=== PATIENT | male | born 1980 | race Caucasian/White ===

== ENCOUNTER → 2018-08-15 | Outpatient (CLI) | payer OTHER ==
[~2018-08-15] MED LIST: IOPAMIDOL 370 MG/ML 200 ML INFUS..BTL INJ ONE; SODIUM CHLORIDE 0.9% 50ML 50 ML ONE
--- NOTE | 2018-08-15 09:46 | Diagnostic Imaging Report ---
EXAMINATION: CT of the abdomen and pelvis with contrast. TECHNIQUE: Spiral CT images of the abdomen and pelvis were performed from the lung bases to the lesser trochanters after the intravenous administration of 100 cc of Isovue-370 and the oral administration of water. Coronal and sagittal reformatted images were obtained. COMPARISON: None. CLINICAL HISTORY:Melena, abdominal pain, patient reports history of cholecystectomy DISCUSSION: ABDOMEN/PELVIS: LOWER THORAX:Trace subsegmental atelectasis in the dependent lower lobes. HEPATOBILIARY: No focal hepatic lesions. No intra-or extrahepatic biliary ductal dilation. The gallbladder has been removed with multiple metallic clips in the hepatic hilum. SPLEEN: No splenomegaly. Small splenule in the hilum. PANCREAS: No focal masses or ductal dilatation. ADRENALS: No adrenal nodules. KIDNEYS/URETERS: No hydronephrosis, stones, or solid mass lesions. PELVIC ORGANS/BLADDER: Urinary bladder, prostate, and seminal vesicles are unremarkable. PERITONEUM/RETROPERITONEUM: No free air or fluid. LYMPH NODES: No pelvic sidewall, retroperitoneal, or mesenteric lymphadenopathy. VESSELS: Abdominal aorta, major branch vessels, and iliac arterial systems are well-visualized and patent, without aneurysmal dilatation. The portal vein, splenic vein, and central superior mesenteric vein are patent. GI TRACT: The large bowel shows no evidence of distention or wall thickening. The appendix is normal. Mild prominence of the gastric rugal folds is likely attributable to underdistention. No small bowel dilatation to suggest obstruction. BONES AND SOFT TISSUE: No bony destructive lesions. No soft tissue abnormalities. IMPRESSION: No acute intra-abdominal or pelvic CT abnormality. No CT findings to explain the patient's reported history of melena or abdominal pain. Signed by: Dr. Ike Schwartz M.D. on 08/15/2018 9:42 AM
== END ==
LOC: CT 08:12
PROVIDERS: ATTEND Internal Medicine Gastroenterology
DX: K92.1 Melena (principal)
CPT/HCPCS: 74177; Q9967

== ENCOUNTER → 2018-08-26 | Day surgery (SDC) | payer OTHER, SELFPAY ==
[~2018-08-26] MED LIST changes: +HYOSCYAMINE SULFATE 0.5 MG/ML INJ ONE; -IOPAMIDOL 370 MG/ML 200 ML INFUS..BTL INJ ONE; +MIDAZOLAM HCL 2 MG/2 ML VIAL ONE; +PROPOFOL IV EMULSION 10 MG/ML 50 ML VIAL ONE; -SODIUM CHLORIDE 0.9% 50ML 50 ML ONE
--- OUTSIDE RECORDS SUMMARY | 2018-08-26 10:19 | XMS REPORT ---
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 Allergies, Adverse Reactions, Alerts This patient has no known allergies or adverse reactions. Medications This patient has no known medications. Encounters Start Date/Time End Date/Time Encounter Type Admission Type Attending Clinicians Care Facility Care Department Encounter ID 2017-02-09 12:35:00 Inpatient [facility] [id number] 2017-01-26 14:44:00 Inpatient [facility] [id number] Results Test Description Test Time Test Comments Text Results Atomic Results Result Comments CT ABDOMEN/PELVIS W 2018-08-15 09:34:00 [place] [id number] Patient Name: PAULINE SANCHEZ MR #: [id number] : 1980 Age/Sex: 38/M Req #: [id number] Adm Physician: Ordered by: KIRSTIN SINGH MD Report #: [id number] Location: CT Room/Bed: Procedure: [id number] CT/CT ABDOMEN/PELVIS W Exam Date: 08/15/18 Exam Time: 0924 REPORT STATUS: Signed EXAMINATION: CT of the abdomen and pelvis with contrast. TECHNIQUE: Spiral CT images of the abdomen and pelvis were performed from the lung bases to the lesser trochanters after the intravenous administration of 100 cc of Isovue-370 and the oral administration of water. Coronal and sagittal reformatted images were obtained. COMPARISON: None. CLINICAL HISTORY:Melena, abdominal pain, patient reports history of cholecystectomy DISCUSSION: ABDOMEN/PELVIS: LOWER THORAX:Trace subsegmental atelectasis in the dependent lower lobes. HEPATOBILIARY: No focal hepatic lesions. No intra-or extrahepatic biliary du ctal dilation. The gallbladder has been removed with multiple metallic clips in the hepatic hilum. SPLEEN: No splenomegaly. Small splenule in the hilum. PANCREAS: No focal masses or ductal dilatation. ADRENALS: No adrenal nodules. KIDNEYS/URETERS: No hydronephrosis, stones, or solid mass lesions. PELVIC ORGANS/BLADDER: Urinary bladder, prostate, and seminal vesicles are unremarkable. PERITONEUM/RETROPERITONEUM: No free air or fluid. LYMPH NODES: No pelvic sidewall, retroperitoneal, or mesenteric lymphadenopathy. VESSELS: Abdominal aorta, major branch vessels, and iliac arterial systems are well-visualized and patent, without aneurysmal dilatation. The portal vein, splenic vein, and central superior mesenteric vein are patent. GI TRACT: The large bowel shows no evidence of distention or wall thickening. The appendix is normal. Mild prominence of the gastric rugal folds is likely attributable to underdistention. No small bowel dilatation to suggest obstruction. BONES AND SOFT TISSUE: No bony destructive lesions. No soft tissue abnormalities. IMPRESSION: No acute intra-abdominal or pelvic CT abnormality. No CT findings to explain the patient's reported history of melena or abdominal pain. Signed by: Dr. Sai Cutler M.D. on 08/15/2018 9:42 AM Dictated By: SAI CUTLER MD 1 Transcribed By: NELIA on 08/15/18941 COPY TO: KIRSTIN SINGH MD
[2018-08-26 14:00] VITALS: BP 133/78
--- NOTE | 2018-08-26 14:16 | Operative Report ---
DATE OF PROCEDURE: August 26, 2018 REFERRING PHYSICIAN: Dr. Basil Morrison. PROCEDURE PERFORMED: Colonoscopy with polypectomy. INDICATIONS FOR COLONOSCOPY: History of blood in stools, lower abdominal pain. MEDICATION: Patient was done under MAC. Please see anesthesiologist's note. PROCEDURE: With patient in left lateral decubitus position, a flexible fiberoptic Olympus colonoscope was inserted into the rectum with ease and advanced all the way to the cecum. A minute polyp was hot biopsied from the cecum and polypectomy site was hemoclipped. The scope was then withdrawn slowly. Mucosa overlying the ascending and the transverse appeared to be within normal limits. Two polyps were hot biopsied in the descending colon. Three polyps were hot biopsied and 1 polyp was snared from the sigmoid colon. One polypectomy site was hemoclipped. The rectum grossly appeared to be within normal limits. The scope was then retroflexed into the distal rectum and moderate-size internal hemorrhoids were noted, none of which was actively bleeding. The scope was then straightened out. It was subsequently withdrawn. Patient tolerated the procedure well. IMPRESSIONS 1. Cecal polyp, hot biopsied, polypectomy site hemoclipped. 2. Descending colon polyps x2, hot biopsied. 3. Sigmoid colon polyps x4, one snared and polypectomy site hemoclipped and 3 hot biopsied. 4. Moderate-size internal hemorrhoids, none actively bleeding. PLAN: Follow up histology. Initiate high-fiber, low-fat diet. Initiate high-fiber supplement. Start VSL #3 one p.o. daily and Bentyl 10 mg 1 p.o. t.i.d. A total of 7 polyps were removed. Patient might benefit from a followup colonoscopy in 2 to 3 years. Job#: [id number] TA cc:Basil Morrison M.D.,
== END | disposition home or self-care (01) ==
LOC: OR 10:13
PROVIDERS: ATTEND Internal Medicine Gastroenterology
DX: D12.4 Benign neoplasm of descending colon (principal); D12.5 Benign neoplasm of sigmoid colon; K92.1 Melena; R10.9 Unspecified abdominal pain; K63.5 Polyp of colon; K64.8 Other hemorrhoids
CPT/HCPCS: 45384; J1980; J2250; J2704; 45378; 45385